=== PATIENT | male | born 1975 | race Hispanic/Latino ===

== ENCOUNTER 2020-05-30 23:07 | Emergency (ER) | payer OTHER ==
[~2020-05-30] VITALS: Ht 188 cm; Wt 113.4 kg
[2020-05-30] MEDS ORDERED: TETANUS/DIPHTHERIA TOX ADULT 0.5 ML SYR ONE (23:42)
[2020-05-30] MEDS ORDERED: TETANUS/DIPHTHERIA TOX ADULT 0.5 ML SYR IM ONE (23:45)
[2020-05-31] MEDS ORDERED: AUGMENTIN 875-1 EACH PO (17:26)
== END 2020-05-31 | disposition home or self-care (01) ==
LOC: FSED 23:15
DX: S51.851A Open bite of right forearm, initial encounter (principal); W54.0XXA Bitten by dog, initial encounter; Y92.488 Other paved roadways as the place of occurrence of the external cause; E11.9 Type 2 diabetes mellitus without complications; I25.2 Old myocardial infarction
CPT/HCPCS: 90714; 99282